=== PATIENT | female | born 1980 | race Caucasian/White ===

== ENCOUNTER 2017-07-13 02:51 | Emergency (ER) | payer MEDICAID, OTHER ==
[~2017-07-13] VITALS: Ht 160 cm; Wt 65.8 kg
[2017-07-13] MEDS ORDERED: CYCL5TAB PO (04:51)
[2017-07-13] MEDS ORDERED: HYDR-757 PO (04:51)
[2017-07-13] MEDS ORDERED: OMEP20CA12 PO (04:51)
[2017-07-13] MEDS ORDERED: GABA-488 PO (04:51)
[2017-07-13] MEDS ORDERED: MEDICAL CANNABIS (04:51)
[2017-07-13] MEDS ORDERED: RT-ALBUINH IH (04:51)
[2017-07-13] MEDS ORDERED: CLON0.252 PO (04:51)
[2017-07-13] MEDS ORDERED: ONDA4TAB11 PO (04:51)
[2017-07-13] MEDS ORDERED: MEDR150D6 IM (04:51)
[2017-07-13] MEDS ORDERED: IBUP-1780 PO (04:51)
[2017-07-13] MEDS ORDERED: MELO15TA39 PO (04:51)
[2017-07-13] MEDS ORDERED: BUSP10TA95 PO (04:51)
[2017-07-13] MEDS ORDERED: DEXAMETHASONE 10 MG/ML (DECADRON) 1 ML VIAL IM ONE (05:30)
--- NOTE | 2017-07-13 05:33 | ED Cough/URI ---
General Chief Complaint: Fever-Adult/Adol Stated Complaint: FLU SYM Nursing Triage Note: PT REPORTS FLU-LIKE SYMPTOMS STARTING [address] CALLED IN [facility] BUT ALL PHARMACIES THAT HER INSURANCE WOULD COVER. PT REPORTS COUGH, CONGESTION , FEVER, CHILLS, CHEST BURNING, AND VOMIT X 1 WITH LEFT SIDED ABD PAIN. PT STATES HAD HYSTERECTOMY ON 05/29/17 IN [place]. Source: patient Exam Limitations: no limitations History of Present Illness Time seen by provider: 05:15 Initial Comments Here with 5 days of upper respiratory symptoms including runny nose, nasal congestion, sore throat, cough and burning throat. States that she is taking [id number] medicines and these aren't helping. Also complains of some left lower quadrant abdominal pain near her recent hysterectomy scar. Did vomit one time. That has subsequently subsided and there is no diarrhea. States her fibromyalgia symptoms are really acting up right now. Timing/Duration: constant, week Severity/Quality: dry cough Prior Episodes/Possible Cause: occasional episodes Associated Symptoms: cough, fever/chills, nasal congestion, nasal drainage, sinus infection Allergies and Home Medications Allergies Coded Allergies: No Known Drug Allergies (Unverified , 07/13/17) Home Medications Albuterol Sulfate 1 Puff Puff, 2 PUFF IH Q4H PRN for WHEEZING, (Reported) 1 PUFF = 90 MCG Buspirone HCl 10 Mg Tablet, 10 MG PO BID, (Reported) Clonazepam 0.25 Mg Tab.rapdis, 0.25 MG PO BID, (Reported) Cyclobenzaprine HCl 5 Mg Tablet, 5 MG PO Q8H PRN for PAIN-MILD, (Reported) Gabapentin 300 Mg Capsule, 300 MG PO TID, (Reported) Hydrocodone/Acetaminophen 1 Each Tablet, 1 EACH PO TID PRN for PAIN-SEVERE, ( Reported) Ibuprofen 800 Mg Tablet, 800 MG PO Q8H PRN for PAIN, (Reported) Medroxyprogesterone Acetate 150 Mg/1 Ml Syringe, 150 MG IM UD, (Reported) Meloxicam 15 Mg Tablet, 15 MG PO DAILY, (Reported) Omeprazole 20 Mg Capsule., 20 MG PO DAILY, (Reported) Ondansetron 4 Mg Tab.rapdis, 4 MG PO Q6H PRN for NAUSEA/VOMITING-1ST LINE, ( Reported) [Medical Cannabis] , PRN, (Reported) Constitutional: see HPI, chills, fever EENTM: nose congestion, nose pain, throat pain Respiratory: cough, No short of breath Cardiovascular: no symptoms reported Gastrointestinal: see HPI, vomiting Genitourinary: No dysuria, No pain Musculoskeletal: no symptoms reported Skin: no symptoms reported All Other Systems Reviewed Negative Unless Noted: Yes Past Dvhjbsx-[id number]-Aemlld Hx Patient Social History Alcohol Use: Denies Use Recreational Drug Use: Yes Drug of Choice: MEDICAL CANNABIS Smoking Status: Current Everyday Smoker Type Used: Cigarettes Recent Foreign Travel: No Contact w/Someone Who Travel: No Recent Infectious Disease Expo: No Recent Hopitalizations: Yes (06/14 HYSTERECTOMY) Physical Abuse: No Sexual Abuse: No Mistreated: No Fear: No Immunizations Up To Date Tetanus Booster (TDap): More than 5yrs Surgeries History of Surgeries: Yes (HERNIA, ) Surgeries: Adenoidectomy, Hysterectomy, Oophorectomy, Tonsillectomy Respiratory History of Respiratory Disorde: No Respiratory Disorders: Chronic Bronchitis Cardiovascular History of Cardiac Disorders: No Neurological History of Neurological Disord: No Reproductive System : No Female Reproductive Disorders: Endometriosis TECHNICAL TRAINER History: Hysterectomy Genitourinary History of Genitourinary Disor: No Gastrointestinal History of Gastrointestinal Di: Yes Gastrointestinal Disorders: Chronic Constipation, Chronic Diarrhea, Irritable Bowel Musculoskeletal Musculoskeletal Disorders: Arthritis, Fibromyalgia Endocrine History of Endocrine Disorders: No Are Your Blood Sugars Over 250: Yes HEENT History of HEENT Disorders: No HEENT Disorders: Chronic Ear Infection Cancer History of Cancer: No Psychosocial Behavioral Health Disorders: Anxiety Suicide Risk Score: 1 Integumentary History of Skin or Integumenta: No Blood Transfusions History of Blood Disorders: No Reviewed Nursing Assessment Reviewed/Agree w Nursing PMH: Yes Family Medical History Significant Family History: No Pertinent Family Hx Physical Exam Vital Signs Vital Sign - Last 12Hours 07/13/17 04:36 Temp 99.8 Pulse 86 Resp 18 B/P (MAP) 123/94 (104) O2 Delivery Room Air Capillary Refill : Less Than 3 Seconds General Appearance: WD/WN, no apparent distress HEENT: PERRL/EOMI, TMs normal, pharyngeal erythema, other (moderate clear rhinorrhea with moderate nasal congestion and erythema) Neck: full range of motion, supple Respiratory: lungs clear, normal breath sounds Cardiovascular: regular rate, rhythm, no murmur Gastrointestinal: normal bowel sounds, soft, tenderness (mild tenderness to the left lower quadrant near the hysterectomy scar at laparoscopy puncture site. ) Extremities: non-tender, normal inspection Neurologic/Psychiatric: alert, oriented x 3 Skin: normal color, warm/dry Progress/Results/Core Measures Suspected Sepsis Recent Fever Within 48 Hours: Yes Infection Criteria Present: Suspected New Infection New/Unexplained Altered Menta: No Sepsis Screen: No Definite Risk Sepsis Diagnosis: SIRS Temperature:99.8 Pulse: 86 Respiratory Rate: 18 Blood Pressure 123 /94 Mean: 104 Results/Orders Micro Results Microbiology 07/13/17 Influenza Types A,B Antigen (ALMA ROSA) - Final, Complete My Orders Orders - DONNIE NELSON MD Influenza A And B Antigens (07/13/17 03:04) Dexamethasone Injection (Decadron Inject (07/13/17 05:30) Vital Signs/I&O Vital Sign - Last 12Hours 07/13/17 04:36 Temp 99.8 Pulse 86 Resp 18 B/P (MAP) 123/94 (104) O2 Delivery Room Air Capillary Refill : Less Than 3 Seconds Blood Pressure Mean: 104 Progress Note : Progress Note Seen and evaluated. Influenza screen negative. Decadron 10 mg IM. Discharged home with return precautions. Patient verbalize understanding instructions and agreement with plan. Departure Impression Impression: Primary Impression: Influenza-like symptoms Disposition: 01 HOME, SELF-CARE Condition: Stable Departure-Patient Inst. Decision time for Depature: 05:38 Referrals: NO,LOCAL PHYSICIAN (PCP) Primary Care Physician Patient Instructions: Viral Upper Respiratory Infection, Adult (DC) Add. Discharge Instructions: All discharge instructions reviewed with patient and/or family. Voiced understanding. You may take Tylenol 1000 mg every 8 hours as needed for pain or fever. You may use Afrin nasal spray or the generic, 12 hour relief, 2 sprays to each nostril for 3 days only and then stop. Do not take more than 3 days. Drink plenty of fluids and get plenty of rest. Return for worsening, fever, vomiting , weakness, breathing problems or other concerns as needed. Continue your home medications as previously prescribed. DONNIE NELSON MD Jul 13, 2017 05:33
[2017-07-13 05:45] VITALS: BP 123/94
== END 2017-07-13 05:45 | disposition home or self-care (01) ==
LOC: ER 02:55
DX: J11.1 Influenza due to unidentified influenza virus with other respiratory manifestations (principal); F41.9 Anxiety disorder, unspecified; J42 Unspecified chronic bronchitis; F12.90 Cannabis use, unspecified, uncomplicated; F17.210 Nicotine dependence, cigarettes, uncomplicated; Z90.710 Acquired absence of both cervix and uterus; Z87.19 Personal history of other diseases of the digestive system; Z90.89 Acquired absence of other organs
CPT/HCPCS: 87804; 96372; 99284